=== PATIENT | female | born 1940 | race Caucasian/White ===

== ENCOUNTER → 2020-01-08 | Outpatient (CLI) | payer MEDICARE, MEDICAID | END | disposition home or self-care (01) | LOC: MSC 11:45 | PROVIDERS: ATTEND Anesthesiology | DX: M25.561 Pain in right knee (principal); M25.562 Pain in left knee; Z96.651 Presence of right artificial knee joint; R51.9 Headache, unspecified; Z98.890 Other specified postprocedural states; Z82.61 Family history of arthritis; Z82.0 Family history of epilepsy and other diseases of the nervous system; M54.5 Low back pain; M62.830 Muscle spasm of back; M40.299 Other kyphosis, site unspecified ==